=== PATIENT | male | born 1945 | race Caucasian/White ===

== ENCOUNTER 2024-09-16 08:07 | Outpatient (CLI) | payer OTHER ==
[~2024-09-16 08:07] MED LIST: PERCOCET 5/3251 TAB PO
== END 2024-09-16 08:13 | disposition home or self-care (01) ==
LOC: TOM 08:07
PROVIDERS: ATTEND Colon & Rectal Surgery
DX: Z12.11 Encounter for screening for malignant neoplasm of colon (principal)